=== PATIENT | female | born 1965 | race Caucasian/White ===

== ENCOUNTER → 2016-12-26 | Outpatient (CLI) | payer OTHER ==
[2016-12-26 14:16] LABS: HEMOGLOBIN 14.5 gm/dl (12.3-15.3); RED BLOOD COUNT 4.91 M/UL (4.00-5.10); WHITE BLOOD COUNT 8.3 K/UL (4.5-11.0)
[2016-12-26 14:36] LABS: BUN/CREATININE RATIO 31 (0-10)
== END ==
LOC: LAB 13:07
PROVIDERS: Nurse Practitioner Family
DX: G40.409 Other generalized epilepsy and epileptic syndromes, not intractable, without status epilepticus (principal)
CPT/HCPCS: 36415; 80053; 80299; 82140; 85025

== ENCOUNTER → 2020-11-23 | Outpatient (CLI) | payer OTHER ==
[~2020-11-23] MED LIST: ABILIFY15 MG PO; AMBIEN10 MG PO; ASPIRIN CHEWABL81 MG PO; BRIVIACT PO; CARTRIDGE STAM1 EACH SC; CO Q-1010 MG PO; COGENTIN 2MG TAB2 MG PO; DEPAKOTE ER500 MG PO; ECOTRIN81 MG PO; EFFEXOR XR 150150 MG PO; EFFEXOR XR75 MG PO; GLUCOPHAGE850 MG PO; IBUPROFEN800 MG PO; JARDIANCE25 MG PO; KLONOPIN1 MG PO; LIPITOR TAB 2020 MG PO; LODINE CAP 300300 MG PO; LOVAZA1 GM PO; NEURONTIN 300300 MG PO; OMEGA 3 1,0001 EACH PO; OMEPRAZOLE20 M1 PO; PEPCID40 MG PO; ROBITUSSIN DM473 ML PO; TRESIBA SQ; VISTARIL 25 MG25 MG PO; VISTARIL 50 MG50 MG PO; VRAYLAR6 MG PO; ZYRTEC10 M3 PO
== END ==
LOC: KOH-I 10:56
DX: M51.36 Other intervertebral disc degeneration, lumbar region (principal)
CPT/HCPCS: 72131

== ENCOUNTER → 2021-03-16 | Outpatient (CLI) | payer OTHER | LOC: EXRD 13:00 | DX: E04.1 Nontoxic single thyroid nodule (principal) | CPT/HCPCS: 76536 ==

== ENCOUNTER → 2021-07-20 | Outpatient (CLI) | payer OTHER | LOC: KOH-I 09:50 | DX: G40.909 Epilepsy, unspecified, not intractable, without status epilepticus (principal) | CPT/HCPCS: 70450 ==

== ENCOUNTER 2021-08-02 16:34 | Observation (INO) | payer OTHER ==
[~2021-08-02] VITALS: Ht 165.1 cm; Wt 77.1 kg
[2021-08-02 17:42] LABS: HEMOGLOBIN 13.1 gm/dl (12.3-15.3); RED BLOOD COUNT 4.49 M/UL (4.00-5.10); WHITE BLOOD COUNT 4.7 K/UL (4.5-11.0)
[2021-08-02 17:56] LABS: BUN/CREATININE RATIO 25 (0-10)
[2021-08-03 04:09] LABS: HEMOGLOBIN 12.7 gm/dl (12.3-15.3); RED BLOOD COUNT 4.33 M/UL (4.00-5.10)
[2021-08-03 04:11] LABS: WHITE BLOOD COUNT 6.1 K/UL (4.5-11.0)
[2021-08-03 04:31] LABS: BUN/CREATININE RATIO 26 (0-10)
[2021-08-03] MEDS ORDERED: VITAMIN B-625 MG PO (11:36)
[2021-08-03] MEDS ORDERED: BACLOFEN10 MG PO (11:37)
[2021-08-03] MEDS ORDERED: ZYPREXA20 MG PO (11:37)
[2021-08-03] MEDS ORDERED: FENOFIBRATE145 MG PO (11:38)
[2021-08-03] MEDS ORDERED: TOPIRAMATE ER100 MG PO (11:38)
[2021-08-03] MEDS ORDERED: OMEPRAZOLE40 MG PO (11:39)
[2021-08-03] MEDS ORDERED: HUMALOG100 UNIT/1 SC (11:39)
[2021-08-03] MEDS ORDERED: OMEGA 3 1,0001 EACH PO (11:39)
[2021-08-03] MEDS ORDERED: AMITRIPTYLINE H25 MG PO (11:40)
[2021-08-03] MEDS ORDERED: GLUCOPHAGE 850850 MG PO (11:41)
[2021-08-03] MEDS ORDERED: DIVALPROEX SOD250 M1 PO (11:41)
[2021-08-03] MEDS ORDERED: LIPITOR TAB 2020 MG PO (11:41)
[2021-08-03] MEDS ORDERED: ASPIRIN EC81 MG PO (11:42)
[2021-08-03] MEDS ORDERED: TOPIRAMATE ER200 MG PO (11:44)
== END 2021-08-03 16:40 | disposition home or self-care (01) ==
LOC: ER1 16:34 → CDU 18:08 → 3 EAST 08-03 12:28
PROVIDERS: Emergency Medicine; ADMIT Internal Medicine
DX: G92.8 Other toxic encephalopathy (principal); T43.595A Adverse effect of other antipsychotics and neuroleptics, initial encounter; T43.015A Adverse effect of tricyclic antidepressants, initial encounter; G40.909 Epilepsy, unspecified, not intractable, without status epilepticus; F31.9 Bipolar disorder, unspecified; E11.9 Type 2 diabetes mellitus without complications; E78.5 Hyperlipidemia, unspecified; K76.0 Fatty (change of) liver, not elsewhere classified; F17.210 Nicotine dependence, cigarettes, uncomplicated; Z79.82 Long term (current) use of aspirin; Z90.49 Acquired absence of other specified parts of digestive tract; Z90.710 Acquired absence of both cervix and uterus; Z88.1 Allergy status to other antibiotic agents; Z88.5 Allergy status to narcotic agent; Z88.2 Allergy status to sulfonamides; Z88.8 Allergy status to other drugs, medicaments and biological substances; Z20.822 Contact with and (suspected) exposure to COVID-19; Y92.89 Other specified places as the place of occurrence of the external cause
CPT/HCPCS: 36600; 70450; 71045; 80048; 80053; 80307; 81001; 82140; 82550; 82553; 82803; 82962; 83605; 83735; 83874; 83880; 84100; 84439; 84443; 84484; 85025; 85610; 85730; 87040; 93005; G0378; G0480; J1650; U0002

== ENCOUNTER → 2022-03-08 | Outpatient (CLI) | payer OTHER ==
[~2022-03-08] MED LIST changes: +AMITRIPTYLINE H25 MG PO; +ASPIRIN EC81 MG PO; +BACLOFEN10 MG PO; +DIVALPROEX SOD250 M1 PO; +FENOFIBRATE145 MG PO; +GLUCOPHAGE 850850 MG PO; +HUMALOG100 UNIT/1 SC; +OMEPRAZOLE40 MG PO; +TOPIRAMATE ER100 MG PO; +TOPIRAMATE ER200 MG PO; +VITAMIN B-625 MG PO; +ZYPREXA20 MG PO
== END ==
LOC: KOH-I 12:28
DX: E04.2 Nontoxic multinodular goiter (principal)
CPT/HCPCS: 76536